=== PATIENT | male | born 1965 | race Caucasian/White ===

== ENCOUNTER 2020-11-09 21:18 | Emergency (ER) | payer BC ==
[~2020-11-09] VITALS: Ht 182.8 cm; Wt 106.6 kg
[~2020-11-09 21:18] MED LIST: ANAPROX DS550 MG PO; ASPIRIN81 MG PO; BIAXIN500 MG PO; BISOPROLOL5 MG PO; CLARITIN10 MG PO; COLACE100 MG PO; CRESTOR5 MG PO; DAYPRO600 M1 PO; EES400 MG PO; FLEXERIL10 MG PO; HYDROCODONE BIT1 T11 PO; KEFLEX500 MG PO; LANSOPRAZOLE30 MG PO; LIPITOR40 MG PO; LISINOPRIL AND1 TA1 PO; LISINOPRIL5 MG PO; MEDROL DOSEPAK4 MG PO; METFORMIN1000 MG PO; MOTRIN800 MG PO; Motrin,Rufen800 MG PO; PROBENECID AND1 TAB PO; ROBAXIN-750750 MG PO; ROBAXIN750 MG PO; SKELAXIN800 MG PO; SOMA250 MG PO; VIBRAMYCIN100 MG PO; VICODIN 500 MG-1 TAB PO; VICODIN ES 7501 TAB PO; VITAMIN D-32000 UNI1 PO
[2020-11-09 21:22] VITALS: BP 173/84
[2020-11-09] MEDS ORDERED: IBU800 MG PO (22:32)
[2020-11-09] MEDS ORDERED: Tobrex Ophth S2.5 ML OPH (22:32)
== END 2020-11-09 23:24 | disposition home or self-care (01) ==
LOC: ED 21:18
DX: S05.01XA Injury of conjunctiva and corneal abrasion without foreign body, right eye, initial encounter (principal); T15.91XA Foreign body on external eye, part unspecified, right eye, initial encounter; Z88.0 Allergy status to penicillin; Z79.899 Other long term (current) drug therapy; Z79.82 Long term (current) use of aspirin; Z23 Encounter for immunization; Y92.89 Other specified places as the place of occurrence of the external cause; W22.8XXA Striking against or struck by other objects, initial encounter; Y93.89 Activity, other specified; Y99.8 Other external cause status

== ENCOUNTER 2021-11-16 12:24 | Emergency (ER) | payer OTHER, BC ==
[~2021-11-16] VITALS: Ht 182.8 cm; Wt 112.0 kg
[~2021-11-16 12:24] MED LIST changes: +IBU800 MG PO; +Tobrex Ophth S2.5 ML OPH
[2021-11-16 12:27] VITALS: BP 143/73
[2021-11-16 13:49] LABS: BASO % 0.4 % (0.0-1.0); EOS # 0.2 10*3/uL (0.0-0.4); EOS % 2.1 % (1.0-4.0); HEMATOCRIT 36.1 % (42.0-52.0); LYMPH # 1.1 10*3/uL (1.3-4.4); LYMPH % 15.9 % (27.0-41.0); MEAN CELL VOLUME 90.7 fl (80.0-94.0); MEAN CORPUSCULAR HGB 32.2 pg (27.0-31.0); MEAN CORPUSCULAR HGB CONC 35.5 g/dl (33.0-37.0); MEAN PLATELET VOLUME 10.7 fl (9.6-12.3); MONO # 0.4 10*3/uL (0.1-1.0); MONO % 5.3 % (3.0-9.0); NEUT # 5.4 10*3/uL (2.3-7.9); NEUT % 75.9 % (47.0-73.0); PLATELET COUNT AUTOMATED 138 10*3/uL (130-400); RED BLOOD COUNT 3.98 10*6/uL (4.50-5.90); RED CELL DISTRI WIDTH 13.4 % (0-14.5); WHITE BLOOD COUNT 7.2 10*3/uL (4.8-10.8)
[2021-11-16 13:58] LABS: ACT PARTIAL THROMBO TIME 25.2 SECONDS (20.0-32.1)
[2021-11-16 14:06] LABS: ALKALINE PHOSPHATASE 111 U/L (45-117); BUN 37 mg/dl (7-24); CHLORIDE 110 mmol/L (98-107); CREATININE 1.31 mg/dL (0.70-1.30); LIPASE 191 U/L (73-393); POTASSIUM 4.2 mmol/L (3.5-5.1); SGOT/AST 13 IU/L (3-35); SGPT/ALT 22 U/L (12-78); SODIUM 139 mmol/L (136-145); TOTAL PROTEIN 7.5 gm/dL (6.4-8.2)
[2021-11-16] MEDS ORDERED: HYDROCODONE-AC1 EAC1 PO (15:29)
== END 2021-11-16 15:42 | disposition home or self-care (01) ==
LOC: ED 12:24
PROVIDERS: Emergency Medicine
DX: S70.02XA Contusion of left hip, initial encounter (principal); Z88.0 Allergy status to penicillin; Z79.82 Long term (current) use of aspirin; Z79.899 Other long term (current) drug therapy; Z90.89 Acquired absence of other organs; W18.39XA Other fall on same level, initial encounter; Y93.89 Activity, other specified; Y92.89 Other specified places as the place of occurrence of the external cause; Y99.8 Other external cause status

== ENCOUNTER 2022-06-07 23:16 | Emergency (ER) | payer BC ==
[~2022-06-07] VITALS: Ht 182.8 cm; Wt 111.1 kg
[~2022-06-07 23:16] MED LIST changes: +ALLOPURINOL100 MG PO; +CHLORTHALIDONE25 MG PO; +HYDROCODONE-AC1 EAC1 PO; +LIDOCAINE PAIN1 EACH T; +OMEPRAZOLE20 M3 PO; +ZESTRIL30 M3 PO
[2022-06-07 23:20] VITALS: BP 148/74
[2022-06-07] MEDS ORDERED: PREDNISONE20 M1 PO (23:54)
[2022-06-07] MEDS ORDERED: ZITHROMAX250 MG PO (23:54)
== END 2022-06-08 00:05 | disposition home or self-care (01) ==
LOC: ED 23:16
DX: J20.8 Acute bronchitis due to other specified organisms (principal); Z88.0 Allergy status to penicillin; Z79.899 Other long term (current) drug therapy; Z79.82 Long term (current) use of aspirin; Z90.89 Acquired absence of other organs

== ENCOUNTER 2023-02-22 09:50 | Emergency (ER) | payer BC ==
[~2023-02-22] VITALS: Ht 182.8 cm; Wt 106.6 kg
[~2023-02-22 09:50] MED LIST changes: +PREDNISONE20 M1 PO; +ZITHROMAX250 MG PO
[2023-02-22 10:34] VITALS: BP 171/73
[2023-02-22] MEDS ORDERED: ONDANSETRON4 MG SL (12:02)
[2023-02-22] MEDS ORDERED: AMOX-CLAV 875-1 EACH PO (12:02)
== END 2023-02-22 12:12 | disposition home or self-care (01) ==
LOC: ED 09:50
DX: H66.91 Otitis media, unspecified, right ear (principal); B34.9 Viral infection, unspecified; E87.5 Hyperkalemia; E83.42 Hypomagnesemia; M10.9 Gout, unspecified; K21.9 Gastro-esophageal reflux disease without esophagitis; I10 Essential (primary) hypertension; E11.65 Type 2 diabetes mellitus with hyperglycemia; Z95.5 Presence of coronary angioplasty implant and graft; Z88.0 Allergy status to penicillin; Z98.890 Other specified postprocedural states

== ENCOUNTER → 2023-04-03 | Outpatient (CLI) | payer BC ==
[~2023-04-03] MED LIST changes: +AMOX-CLAV 875-1 EACH PO; +ONDANSETRON4 MG SL
== END | disposition home or self-care (01) ==
LOC: LAB 10:52
PROVIDERS: ATTEND Registered Nurse
DX: R05.1 Acute cough (principal); R53.83 Other fatigue; R53.81 Other malaise; Z20.822 Contact with and (suspected) exposure to COVID-19

== ENCOUNTER → 2023-11-01 | Day surgery (SDC) | payer BC ==
[~2023-11-01] VITALS: Ht 182.8 cm; Wt 61.2 kg
[~2023-11-01] MED LIST changes: +Balanced Salt Solution 500 ML OPH SCH; +CYCLOBENZAPRINE10 MG PO; +CYCLOBENZAPRINE5 M3 PO; +Cefuroxime Sodium 5 MG in BALANCED SALT IRRIG SOLN NO.2 0.5 ML,SYRINGE, DISPOSABLE, 10 ... IO SCH; +Dexamethasone/Tobramycin OPHTHALMIC 2.5 ML BOTTLE ONE; +MELOXICAM15 MG PO; +METFORMIN HYD1000 MG PO; +MULTI-VITAMIN1 EACH PO; +Midazolam Hydrochloride 2 MG/2 ML VIAL IV ONE; +OFLOXACIN 0.3% 5 ML BOTTLE ONE; +OFLOXACIN 0.3% 5 ML BOTTLE OPH SCH; +PHENYLEPHRINE/KETOROLAC 4 ML in Balanced Salt Solution 500 ML OPH SCH; +POVIDONE IODINE 5% OPHTHALMIC 30 ML BOTTLE OPH ONE; +POVIDONE IODINE 5% OPHTHALMIC 30 ML BOTTLE OPH SCH; +PREDNISONE10 MG PO; +Phenylephrine Hydrochloride 2 ML BOT OPH ONE; +Phenylephrine Hydrochloride 2 ML BOT OPH SCH; +Proparacaine Hydrochloride 15 ML BOT OPH ONE; +Proparacaine Hydrochloride 15 ML BOT OPH SCH; +SODIUM CHLORIDE 0.9% 1,000 ML IV SCH; +TETRACAINE HCL 10 DROP BOT OPH SCH; +TRAMADOL HCL25 MG PO; +TROPICAMIDE 3 ML BOT OPH ONE; +TROPICAMIDE 3 ML BOT OPH SCH; +Tetracaine Hydrochloride 0.5% 4 ML BOT OPH ONE; +Tetracaine Hydrochloride 0.5% 4 ML BOT OPH SCH; +VALIUM5 MG PO; +prednisoLONE acetate 1% OPHTHALMIC 5 ML BOT OPH ONE; +prednisoLONE acetate 1% OPHTHALMIC 5 ML BOT OPH SCH
[2023-11-01 07:48] VITALS: BP 110/79
[2023-11-01 09:30] VITALS: BP 121/79
[2023-11-01 09:45] VITALS: BP 145/84
[2023-11-01 09:57] VITALS: BP 107/64
== END | disposition home or self-care (01) ==
LOC: SDC 10-27 09:30
PROVIDERS: ATTEND Ophthalmology
DX: E11.36 Type 2 diabetes mellitus with diabetic cataract (principal); H25.12 Age-related nuclear cataract, left eye; I10 Essential (primary) hypertension; E78.00 Pure hypercholesterolemia, unspecified; I25.2 Old myocardial infarction; G47.30 Sleep apnea, unspecified; M10.9 Gout, unspecified; E78.5 Hyperlipidemia, unspecified; N17.0 Acute kidney failure with tubular necrosis; E66.9 Obesity, unspecified; Z68.30 Body mass index [BMI] 30.0-30.9, adult; Z86.16 Personal history of COVID-19; Z90.89 Acquired absence of other organs; Z86.73 Personal history of transient ischemic attack (TIA), and cerebral infarction without residual deficits; Z98.890 Other specified postprocedural states; Z79.82 Long term (current) use of aspirin; Z79.84 Long term (current) use of oral hypoglycemic drugs; Z79.899 Other long term (current) drug therapy; Z88.0 Allergy status to penicillin; Z82.49 Family history of ischemic heart disease and other diseases of the circulatory system

== ENCOUNTER → 2023-11-29 | Day surgery (SDC) | payer BC ==
[~2023-11-29] VITALS: Ht 182.8 cm; Wt 108.0 kg
[~2023-11-29] MED LIST changes: -Dexamethasone/Tobramycin OPHTHALMIC 2.5 ML BOTTLE ONE
[2023-11-29 07:50] VITALS: BP 168/83
[2023-11-29 08:46] VITALS: BP 143/75
[2023-11-29 09:01] VITALS: BP 143/72
[2023-11-29 09:16] VITALS: BP 142/83
== END | disposition home or self-care (01) ==
LOC: SDC 11-24 11:00
PROVIDERS: ATTEND Ophthalmology
DX: E11.36 Type 2 diabetes mellitus with diabetic cataract (principal); H25.11 Age-related nuclear cataract, right eye; I10 Essential (primary) hypertension; E78.00 Pure hypercholesterolemia, unspecified; I25.2 Old myocardial infarction; M10.9 Gout, unspecified; E66.9 Obesity, unspecified; Z68.30 Body mass index [BMI] 30.0-30.9, adult; Z88.0 Allergy status to penicillin; Z79.82 Long term (current) use of aspirin; Z79.84 Long term (current) use of oral hypoglycemic drugs; Z79.899 Other long term (current) drug therapy; Z86.16 Personal history of COVID-19; Z90.89 Acquired absence of other organs; Z86.73 Personal history of transient ischemic attack (TIA), and cerebral infarction without residual deficits; Z98.890 Other specified postprocedural states; Z82.49 Family history of ischemic heart disease and other diseases of the circulatory system